=== PATIENT | female | born 1985 | race Caucasian/White ===

== ENCOUNTER 2018-02-20 11:35 | Emergency (ER) | payer MEDICARE, MEDICAID ==
[~2018-02-20] VITALS: Ht 154.9 cm; Wt 105.0 kg
[2018-02-20 11:40] VITALS: BP 121/68
[2018-02-20 13:17] LABS: CLARITY,URINE CLOUDY (Clear); COLOR,URINE YELLOW (Yellow); GLUCOSE, URINE NEGATIVE (Neg); KETONES,URINE TRACE mg/dl (Neg); LEUKOCYTE ESTERASE ,URINE SMALL (Neg); NITRITES, URINE NEGATIVE (Neg); OCCULT BLOOD,URINE LARGE (Neg); PROTEIN,URINE TRACE mg/dl (Neg)
[2018-02-20 13:19] LABS: UA COLLECTION TYPE CLN CATCH MIDSTREAM
[2018-02-20 13:27] LABS: BACTERIA,URINE 1+ /HPF (Neg); MUCUS STRANDS FEW /LPF (Neg); SQUAMOUS EPITHELIAL CELL,UR MODERATE /LPF (FEW)
== END 2018-02-20 14:05 | disposition home or self-care (01) ==
LOC: ER 11:35
DX: O26.892 Other specified pregnancy related conditions, second trimester (principal); R10.9 Unspecified abdominal pain; F15.10 Other stimulant abuse, uncomplicated; F12.10 Cannabis abuse, uncomplicated; F17.210 Nicotine dependence, cigarettes, uncomplicated; Z59.0 Homelessness; Z88.1 Allergy status to other antibiotic agents; Z3A.18 18 weeks gestation of pregnancy
CPT/HCPCS: 76805; 81001; 87088; 99285; 99406

== ENCOUNTER 2018-03-21 02:23 | Emergency (ER) | payer MEDICARE, MEDICAID ==
[~2018-03-21] VITALS: Ht 154.9 cm; Wt 89.3 kg
[2018-03-21 03:39] VITALS: BP 104/44
[2018-03-21 04:20] LABS: CLARITY,URINE SLIGHTLY CLOUDY (Clear); COLOR,URINE AMBER (Yellow); GLUCOSE, URINE NEGATIVE (Neg); KETONES,URINE TRACE mg/dl (Neg); LEUKOCYTE ESTERASE ,URINE MODERATE (Neg); NITRITES, URINE NEGATIVE (Neg); OCCULT BLOOD,URINE NEGATIVE (Neg); PH,URINE 5.5 (4.8-8.0); PROTEIN,URINE TRACE mg/dl (Neg)
[2018-03-21 04:21] LABS: UA COLLECTION TYPE CLN CATCH MIDSTREAM
[2018-03-21 04:38] LABS: WBC,URINE 50-100 /HPF (0-4)
[2018-03-21 04:40] LABS: BACTERIA,URINE 2+ /HPF (Neg); CAL OXALATE CRYSTALS 2+ /HPF (NEGATIVE); MUCUS STRANDS MANY /LPF (Neg); SQUAMOUS EPITHELIAL CELL,UR MANY /LPF (FEW)
[2018-03-21] MEDS ORDERED: NITR100C6 PO (04:50)
== END 2018-03-21 04:59 | disposition home or self-care (01) ==
LOC: ER 02:24
DX: O23.42 Unspecified infection of urinary tract in pregnancy, second trimester (principal); F12.90 Cannabis use, unspecified, uncomplicated; F15.90 Other stimulant use, unspecified, uncomplicated; Z59.0 Homelessness; Z88.0 Allergy status to penicillin; Z88.8 Allergy status to other drugs, medicaments and biological substances; Z79.899 Other long term (current) drug therapy; Z3A.00 Weeks of gestation of pregnancy not specified
CPT/HCPCS: 81001; 99283